=== PATIENT | female | born 1985 | race Caucasian/White ===

== ENCOUNTER 2023-04-25 13:32 | Outpatient (CLI) | payer OTHER, SELFPAY | END 2023-04-25 13:33 | disposition home or self-care (01) | PROVIDERS: PCP Physician Assistant Medical; Visit Provider Family Medicine | DX: G47.00 Insomnia, unspecified (principal); R53.83 Other fatigue | CPT/HCPCS: 80053; 84443 ==

== ENCOUNTER 2023-12-25 07:29 | Outpatient (CLI) | payer OTHER, SELFPAY | END 2023-12-25 07:30 | disposition home or self-care (01) | LOC: NFLDREF 12-26 12:38 | PROVIDERS: PCP Physician Assistant Medical; Referring Provider Physician Assistant Medical; Visit Provider Physician Assistant Medical | DX: Z00.00 Encounter for general adult medical examination without abnormal findings (principal); F33.9 Major depressive disorder, recurrent, unspecified; F41.1 Generalized anxiety disorder; Z13.6 Encounter for screening for cardiovascular disorders; Z13.9 Encounter for screening, unspecified | CPT/HCPCS: 80053; 80061; 84443 ==